=== PATIENT | male | born 1955 | race Caucasian/White ===

== ENCOUNTER 2016-10-10 16:29 | Emergency (ER) | payer SELFPAY ==
[~2016-10-10] VITALS: Ht 180.3 cm; Wt 102.2 kg
[~2016-10-10 16:29] MED LIST: ADVAIR 250/501 DISK IH; ADVAIR 500/501 DISK IH; ANTIVERT25 MG PO; ASPIR-LOW81 MG PO; ASPIRIN E.C.81 M1 PO; AZITHROMYCIN250 MG1 PO; CARDIZEM CD120 MG PO; CARDIZEM120 MG PO; COUMADIN4 MG PO; COUMADIN6 MG PO; CRESTOR10 MG PO; Cardizem CD,Cartia X PO; Coumadin,Jantoven PO; DUONEB 2.5-0.5 M3 ML AEROSOL; ENDOCET 5-3251 EACH PO; Folvite PO; HYDROCHLOROTHIA25 MG PO; K-SOL20 MEQ/15 PO; LISINOPRIL10 MG PO; LOPRESSOR100 M1 PO; Lopressor PO; NASONEX17 GM BOTH NARES; PERCOCET 5/31 TABLET PO; PREDNISONE20 MG PO; PROAIR HFA8.5 GM IH; PROTONIX40 MG PO; Proventil,Ventolin H IH; SINGULAIR10 MG PO; SPIRIVA1 INHALATI IH; THIAMINE,VITAM100 MG PO; VITAMIN D22000 UNIT PO; WELLBUTRIN SR150 MG PO; ZESTRIL,PRINIVI10 M1 PO; ZYLOPRIM100 MG PO; ZYRTEC10 M3 PO; Zocor PO; predniSONE PO
[2016-10-10 18:43] VITALS: BP 109/82
== END 2016-10-10 18:44 | disposition home or self-care (01) ==
LOC: EME 16:29
DX: S00.81XA Abrasion of other part of head, initial encounter (principal); F10.129 Alcohol abuse with intoxication, unspecified; W19.XXXA Unspecified fall, initial encounter; Y93.01 Activity, walking, marching and hiking; Y92.511 Restaurant or cafe as the place of occurrence of the external cause; J45.909 Unspecified asthma, uncomplicated; J44.1 Chronic obstructive pulmonary disease with (acute) exacerbation; I10 Essential (primary) hypertension; Z91.018 Allergy to other foods; Z87.891 Personal history of nicotine dependence
CPT/HCPCS: 70450; 99281; 99284

== ENCOUNTER → 2017-11-01 | Outpatient (CLI) | payer SELFPAY | END | disposition home or self-care (01) | LOC: RAD 08:37 | DX: R91.8 Other nonspecific abnormal finding of lung field (principal) | CPT/HCPCS: 71046 ==

== ENCOUNTER → 2017-11-22 | Outpatient (CLI) | payer SELFPAY | END | disposition home or self-care (01) | LOC: RAD 09:30 | DX: J18.9 Pneumonia, unspecified organism (principal); I70.0 Atherosclerosis of aorta; M47.899 Other spondylosis, site unspecified | CPT/HCPCS: 71046 ==